=== PATIENT | female | born 1970 | race Caucasian/White ===

== ENCOUNTER → 2018-10-05 | Outpatient (CLI) | payer OTHER | END | disposition home or self-care (01) | LOC: CFH 10:24 | PROVIDERS: ATTEND Physician Assistant Medical | DX: R07.89 Other chest pain (principal) | CPT/HCPCS: 36415; 71046; 85379 ==

== ENCOUNTER 2021-03-20 06:21 | Emergency (ER) | payer OTHER ==
[~2021-03-20] VITALS: Ht 172.7 cm; Wt 90.0 kg
[2021-03-20] MEDS ORDERED: ONDANSETRON ODT 4 MG ONE (07:37)
[2021-03-20] MEDS ORDERED: ONDANSETRON ODT 4 MG PO ONE (08:00)
--- NOTE | 2021-03-20 09:35 | NUR ---
TO ROOM FROM LOBBY. NAD.
--- NOTE | 2021-03-20 09:40 | NUR ---
fell this morning at 5:45 in a ditch while volunteering at [employer]. pain to ankles bilaterally. swelling.
[2021-03-20] MEDS ORDERED: KETOROLAC 30 MG/1 ML IM ONE (10:30)
[2021-03-20] MEDS ORDERED: KETOROLAC 60 MG/2 ML ONE (10:37)
[2021-03-20 10:41] VITALS: BP 128/78
[2021-03-20] MEDS ORDERED: PLEASE ENTER ALLERGIES MC SCH (11:00)
--- NOTE | 2021-03-20 11:05 | NUR ---
daughter picking up
== END 2021-03-20 11:06 | disposition home or self-care (01) ==
LOC: ED 10:34
DX: S82.61XA Displaced fracture of lateral malleolus of right fibula, initial encounter for closed fracture (principal); S93.492A Sprain of other ligament of left ankle, initial encounter; W01.0XXA Fall on same level from slipping, tripping and stumbling without subsequent striking against object, initial encounter; Y93.89 Activity, other specified; Y92.830 Public park as the place of occurrence of the external cause; Y99.8 Other external cause status
CPT/HCPCS: 29515; 73610; 96372; 99283; J1885; Q0162